=== PATIENT | female | born 1965 | race Caucasian/White ===

== ENCOUNTER 2016-11-21 08:59 | Emergency (ER) | payer MEDICAID, OTHER ==
[2016-11-21] MEDS ORDERED: LORazepam 2 MG/ML Syringe IM ONE (09:36)
--- NOTE | 2016-11-21 09:55 | EDM.PDOC ---
ED HPI GENERAL MEDICAL PROBLEM - General Chief Complaint: General Stated Complaint: SHAKEY/WEAK NAUSEA/ANXIETY Time Seen by Provider: 11/21/16 09:33 Source of Information: Reports: Patient, Old Records History Limitations: Reports: No Limitations - History of Present Illness INITIAL COMMENTS - FREE TEXT/NARRATIVE: Patient is a 51 year old female with history of anxiety and depression. States she was "near a nervous breakdown " approximately one omonth ago and was restarted on celexa. She was also given ativan to use prn. Her symptoms of anxiety and depression had actually started improving and she was starting to feel somewhat better mood vargas and had not used any ativan for several weeks. She has had a lot of increased stress at home recently and felt like "something was coming on" over the last few days with vague symptoms of some nausea and just not feeling right. When she woke up the morning she had nausea but no emesis and had three diarrhea stools. She feels weak and shaky. Denies chest pain or shortness of breath. Feels intermittent palpitations. Patient took 1 mg PO ativan just before coming to ER but it is not helping yes. She was able to eat some breakfast and drink some orange juice. Patent was on a z-pack for a respiratory infection which has pretty much resolved except for an occasion non productive cough. Onset: Gradual Onset Date: 11/19/16 Duration: Day(s): (has been coming on over last two days) Associated Symptoms: Reports: Nausea/Vomiting, Weakness, Other (feels shaky and anxious). Denies: Chest Pain, cough w sputum, Diaphoresis, Fever/Chills, Headaches, Loss of Appetite, Shortness of Breath Treatments TAPER MACHINE: Reports: Other (see below) (too ativan 1 mg just prior to arrival at ER) Other Treatments TAPER MACHINE: none - Related Data Allergies Allergy/AdvReac Type Severity Reaction Status Date / Time Penicillins Allergy Hives Verified 11/21/16 09:17 prochlorperazine edisylate Allergy Facial Verified 11/21/16 09:17 [From Compazine] Spasms prochlorperazine maleate Allergy Facial Verified 11/21/16 09:17 [From Compazine] Spasms Home Meds: Home Meds Citalopram [Celexa] 20 mg PO DAILY 11/21/16 [History] LORazepam [Ativan] 1 mg PO ASDIRECTED PRN 11/21/16 [History] Omeprazole 20 mg PO DAILY 11/21/16 [History] Past Medical History Other HEENT History: Patient has red, itchy, painful, watery eyes for past 2 days. Gastrointestinal History: Reports: PUD Other Gastrointestinal History: ulcers Other OB/BYN History: 3 c-sections Psychiatric History: Reports: Anxiety, Depression - Past Surgical History GI Surgical History: Reports: Appendectomy Other Female Surgeries/Procedures: pt denies Social & Family History - Family History Family Medical History: Noncontributory - Tobacco Use Smoking Status *Q: Current Every Day Smoker Years of Tobacco use: 31 Packs/Tins Daily: 0.5 Used Tobacco, but Quit: No Month Tobacco Last Used: CURRENT Second Hand Smoke Exposure: Yes - Alcohol Use Days Per Week of Alcohol Use: 0 - Recreational Drug Use Recreational Drug Use: No ED ROS GENERAL - Review of Systems Review Of Systems: See Below Constitutional: Reports: Weakness, Night Sweats, Other (nght sweats, sleeps well but never feels rested). Denies: Fever, Chills, Diaphoresis, Weight Loss HEENT: Reports: Eye Discharge (itchy watery eyes last few days) Respiratory: Reports: No Symptoms Cardiovascular: Reports: Lightheadedness, Palpitations (intermittent). Denies: Chest Pain, Dyspnea on Exertion, Edema, Syncope Endocrine: Reports: Fatigue GI/Abdominal: Reports: Diarrhea (times three this morning), Nausea. Denies: Abdominal Pain, Black Stool, Bloody Stool, Difficulty Swallowing, Melena, Vomiting : Reports: No Symptoms Musculoskeletal: Reports: No Symptoms Skin: Reports: No Symptoms Neurological: Reports: Tremors, Weakness Psychiatric: Reports: Anxiety, Depression Hematologic/Lymphatic: Reports: No Symptoms Immunologic: Reports: No Symptoms ED EXAM, GENERAL - Physical Exam Exam: See Below Exam Limited By: No Limitations General Appearance: Alert, WD/WN, Anxious Eye Exam: Bilateral Eye: EOMI, PERRL Ears: Normal External Exam, Normal Canal, Hearing Grossly Normal, Normal TMs Ear Exam: Bilateral Ear: Auricle Normal, Canal Normal, TM normal Nose: Normal Inspection, Normal Mucosa, No Blood Throat/Mouth: Normal Inspection, Normal Lips, Normal Teeth, Normal Gums, Normal Oropharynx, Normal Voice, No Airway Compromise Head: Atraumatic, Normocephalic Neck: Normal Inspection, Supple, Non-Tender, Full Range of Motion Respiratory/Chest: No Respiratory Distress, Wheezing (lungs mainly clear but coarse bilat ant and post with scattered expiratory wheezes). No: Respiratory Distress Cardiovascular: Normal Peripheral Pulses, Regular Rate, Rhythm, No Edema, No Gallop, No JVD, No Murmur, No Rub, Other (cardiac rhythm strip showed NSR without ectopy, rate in the 70s) Peripheral Pulses: 3+: Radial (L), Radial (R) GI/Abdominal: Normal Bowel Sounds, Soft, Non-Tender, No Organomegaly, No Distention, No Abnormal Bruit, No Mass (Female) Exam: Deferred Rectal (Female) Exam: Deferred Back Exam: Normal Inspection, Full Range of Motion, NT Extremities: Normal Inspection, Normal Range of Motion, Non-Tender, Normal Capillary Refill, No Pedal Edema Neurological: Alert, Oriented, CN II-XII Intact, Normal Cognition, Normal Gait, Normal Reflexes, No Motor/Sensory Deficits, Other (maintains eye contact, has spontaneous speech without inappropriate speech patterns, is able express self fluently,) Psychiatric: Anxious, Tearful Skin Exam: Warm, Dry, Intact, Normal Color, No Rash Lymphatic: No Adenopathy Course - Vital Signs Last Recorded V/S: Last Vital Signs Temp 36.2 C 11/21/16 09:14 Pulse 82 11/21/16 10:14 Resp 16 11/21/16 10:08 BP 126/84 11/21/16 10:14 Pulse Ox 95 11/21/16 10:08 - Orders/Labs/Meds Labs: Laboratory Tests 11/21/16 11/21/16 Range/Units 09:47 09:47 WBC 6.4 (5.0-10.0) 10^3/uL RBC 4.17 (4.00-5.50) 10^6/uL Hgb 13.5 (12.0-16.0) g/dL Hct 40.9 (37.0-47.0) % MCV 98.1 H (82.0-94.0) fL MCH 32.4 H (27.0-32.0) pg MCHC 33.0 (33.0-38.0) g/dL RDW Coeff of Real 13.7 (11.0-15.0) % Plt Count 222 (150-400) 10^3/uL Neut % (Auto) 66.9 (35-85) % Lymph % (Auto) 20.2 (10-55) % [place] % (Auto) 10.4 (0-16) % Eos % (Auto) 2.0 (0-5) % Baso % (Auto) 0.5 (0-3) % Neut # (Auto) 4.25 (1.80-7.00) 10^3/uL Lymph # (Auto) 1.28 (1.00-4.80) 10^3/uL [place] # (Auto) 0.66 (0.00-0.80) 10^3/uL Eos # (Auto) 0.13 (0.00-0.45) 10^3/uL Baso # (Auto) 0.03 10^3/uL Sodium 141 (136-145) mEq/L Potassium 4.4 D (3.5-5.0) mEq/L Chloride 106 (98-106) mEq/L Carbon Dioxide 28 (21-32) mmol/L BUN 18 (7-18) mg/dL Creatinine 0.9 (0.6-1.0) mg/dL Est Cr Clr Drug Dosing 59.80 mL/min Estimated GFR (MDRD) > 60 (>=60) mL/min Glucose 89 (75-99) mg/dL Calcium 9.1 (8.4-10.1) mg/dL Total Bilirubin 0.2 (0.0-1.0) mg/dL AST 14 L (15-37) U/L ALT 20 (12-78) U/L Alkaline Phosphatase 73 (46-116) U/L Total Protein 7.0 (6.4-8.2) g/dL Albumin 3.9 (3.4-5.0) g/dL TSH, Ultra Sensitive 2.72 (0.36-5.60) uIU/mL Meds: Medications Discontinued Medications Generic Name Dose Route Start Last Admin Trade Name Freq PRN Reason Stop Dose Admin Lorazepam 1 mg 11/21/16 09:36 11/21/16 09:44 Ativan IM 11/21/16 09:37 1 mg ONETIME ONE Administration - Re-Assessments/Exams Free Text/Narrative Re-Assessment/Exam: 11/21/16 11:04 Patient evaluated and labs done. Labs showed no significant abnormalities likely to affect her currently symptoms but did show mild persistent elevation in MCH which looks like it has been present going back several years on chart review. This may need further evaluation in the [facility] setting but will leave that to her PCP. Situation discussed at length with patient and advised likely cause of symptoms is anxiety disorder.However also advised her if symptoms persist, change or worsen she needs to follow up with her PCP for further evaluation. She was given 1 mg IM ativan and initial symptoms were pretty much resolved prior to discharge. Patient denied any thought or plans for suicide or hurting herself or anyone else. She is advised that if she does develop suicidal thoughts she needs to seek medical care at once. Other recommendations discussed at length with patients as per discharge sheet. She is to follow up with her PCP within the next two weeks and set up an appointment for counseling as soon as possible. Patient voiced understanding and was discharged in stable condition to home. Departure - Departure Time of Disposition: 11:00 Disposition: Home, Self-Care 01 Condition: Good Clinical Impression: Anxiety disorder Qualifiers: Anxiety disorder type: unspecified anxiety disorder Qualified Code(s): F41.9 - Anxiety disorder, unspecified - Discharge Information Instructions: Panic Attacks Forms: ED Department Discharge Additional Instructions: We will increase your citalopram to 40 mg daily. Follow up with Dr Montero within the next two weeks please for further treatment recommendations. If you tend to feel anxious first thing in the morning, get up 30 minutes early and take 1/2 mg of the ativan to help with your anxiety. The goal is to use as infrequently as possible once your anxiety and depression improve. Never stop taking your citalopram suddenly. You may experience serotonin withdrawal syndrome. If you ever go off of it, it needs to be gradually tapered. Make an appointment to see a counselor in the near future. If your present symptoms change or worsen in any way, please return to ER or clinic for further evaluation..
[2016-11-21 10:15] VITALS: BP 126/84
[2016-11-21 10:24] LABS: CHLORIDE,CL 106 mEq/L (98-106); SODIUM,NA 141 mEq/L (136-145)
== END 2016-11-21 11:10 | disposition home or self-care (01) ==
LOC: CC.ED 08:59
DX: F41.9 Anxiety disorder, unspecified (principal); F17.210 Nicotine dependence, cigarettes, uncomplicated; Z88.0 Allergy status to penicillin; Z88.8 Allergy status to other drugs, medicaments and biological substances; Z79.899 Other long term (current) drug therapy; Z90.89 Acquired absence of other organs
CPT/HCPCS: 36415; 80053; 84443; 85025; 96372; 99283; J2060

== ENCOUNTER 2017-04-10 01:47 | Emergency (ER) | payer SELFPAY ==
[2017-04-10] MEDS ORDERED: Ondansetron 4 MG Tab.DIS PO ONE (01:49)
[2017-04-10 01:52] VITALS: BP 113/76
[2017-04-10] MEDS ORDERED: Ketorolac 60 MG/2 ML SDV IM ONE (01:54)
--- NOTE | 2017-04-10 02:02 | EDM.PDOC ---
ED HPI GENERAL MEDICAL PROBLEM - General Chief Complaint: Abdominal Pain Stated Complaint: abd pain Time Seen by Provider: 04/10/17 01:47 Source of Information: Reports: Patient History Limitations: Reports: No Limitations - History of Present Illness INITIAL COMMENTS - FREE TEXT/NARRATIVE: States she has been having stomach cramps with diarrhea, and nausea since yesterday morning. Is able to hold down fluids. Onset: Gradual Onset Date: 04/09/17 Duration: Hour(s): Location: Reports: Abdomen Quality: Reports: Other (cramping) Severity: Moderate Improves with: Reports: None Worsens with: Reports: None Abdominal Pain Score (Numeric/FACES): 7 - Related Data Allergies Allergy/AdvReac Type Severity Reaction Status Date / Time Penicillins Allergy Hives Verified 04/10/17 01:47 prochlorperazine edisylate Allergy Facial Verified 04/10/17 01:47 [From Compazine] Spasms prochlorperazine maleate Allergy Facial Verified 04/10/17 01:47 [From Compazine] Spasms Home Meds: Home Meds Citalopram [Celexa] 20 mg PO DAILY 11/21/16 [History] LORazepam [Ativan] 1 mg PO ASDIRECTED PRN 11/21/16 [History] Omeprazole 20 mg PO DAILY 11/21/16 [History] Past Medical History Other HEENT History: Patient has red, itchy, painful, watery eyes for past 2 days. Gastrointestinal History: Reports: PUD Other Gastrointestinal History: ulcers Other OB/BYN History: 3 c-sections Psychiatric History: Reports: Anxiety, Depression - Past Surgical History GI Surgical History: Reports: Appendectomy Other Female Surgeries/Procedures: pt denies Social & Family History - Family History Family Medical History: Noncontributory - Tobacco Use Smoking Status *Q: Current Every Day Smoker Years of Tobacco use: 31 Packs/Tins Daily: 0.5 Used Tobacco, but Quit: No Month Tobacco Last Used: CURRENT Second Hand Smoke Exposure: Yes - Alcohol Use Days Per Week of Alcohol Use: 0 - Recreational Drug Use Recreational Drug Use: No ED ROS GENERAL - Review of Systems Review Of Systems: See Below Constitutional: Reports: No Symptoms HEENT: Reports: No Symptoms Respiratory: Reports: No Symptoms Cardiovascular: Reports: No Symptoms Endocrine: Reports: No Symptoms GI/Abdominal: Reports: Abdominal Pain, Diarrhea, Nausea : Reports: No Symptoms Musculoskeletal: Reports: No Symptoms Skin: Reports: No Symptoms Neurological: Reports: No Symptoms Psychiatric: Reports: No Symptoms Hematologic/Lymphatic: Reports: No Symptoms Immunologic: Reports: No Symptoms ED EXAM, GI/ABD - Physical Exam Exam: See Below Exam Limited By: No Limitations General Appearance: Alert, WD/WN Head: Atraumatic Neck: Normal Inspection Respiratory/Chest: No Respiratory Distress, Lungs Clear Cardiovascular: Normal Peripheral Pulses, Regular Rate, Rhythm GI/Abdominal Exam: Normal Bowel Sounds, Soft, No Organomegaly, No Distention, No Abnormal Bruit, No Mass, Tender Extremities: Normal Inspection, Normal Range of Motion Neurological: Alert, Oriented Psychiatric: Normal Affect, Normal Mood Skin Exam: Warm, Dry, Intact Course - Vital Signs Last Recorded V/S: Last Vital Signs Temp 97.9 F 04/10/17 01:48 Pulse 89 04/10/17 01:48 Resp 20 04/10/17 01:48 BP 113/76 04/10/17 01:48 Pulse Ox 97 04/10/17 01:48 - Orders/Labs/Meds Orders: Active Orders 24 hr Category Date Time Status UA W/MICROSCOPIC [URIN] Stat Lab 04/10/17 01:57 Ordered Meds: Medications Discontinued Medications Generic Name Dose Route Start Last Admin Trade Name Guillermo PRN Reason Stop Dose Admin Dicyclomine HCl 10 mg 04/10/17 02:03 Bentyl PO 04/10/17 02:04 ONETIME ONE Ketorolac Tromethamine 60 mg 04/10/17 01:54 04/10/17 02:02 Toradol IM 04/10/17 01:55 60 mg ONETIME ONE Administration Ondansetron HCl 4 mg 04/10/17 01:49 04/10/17 01:53 Zofran Odt PO 04/10/17 01:50 4 mg ONETIME ONE Administration Departure - Departure Time of Disposition: 02:24 Disposition: Home, Self-Care 01 Condition: Good Clinical Impression: Nausea & vomiting, Stomach ache - Discharge Information Instructions: Nausea and Vomiting, Adult, [id number] Forms: ED Department Discharge Additional Instructions: Please see nursing noted for family medical history - My Orders Last 24 Hours: My Active Orders 04/10/17 01:57 UA W/MICROSCOPIC [URIN] Stat - Assessment/Plan Last 24 Hours: My Active Orders 04/10/17 01:57 UA W/MICROSCOPIC [URIN] Stat
[2017-04-10] MEDS ORDERED: Dicyclomine 10 MG Cap PO ONE (02:03)
== END 2017-04-10 02:45 | disposition home or self-care (01) ==
LOC: CC.ED 01:47
DX: R10.9 Unspecified abdominal pain (principal); R11.2 Nausea with vomiting, unspecified; F17.210 Nicotine dependence, cigarettes, uncomplicated; Z88.0 Allergy status to penicillin; Z88.8 Allergy status to other drugs, medicaments and biological substances; Z79.899 Other long term (current) drug therapy
CPT/HCPCS: 81001; 96372; 99284; A9270-GY; J1885

== ENCOUNTER 2019-03-23 19:06 | Emergency (ER) | payer SELFPAY ==
[~2019-03-23 19:06] MED LIST: cefTRIAXone 2 GM Vial ONE
[2019-03-23] MEDS ORDERED: Cephalexin 500 MG Cap PO ONE (19:07)
[2019-03-23] MEDS ORDERED: Ketorolac 10 MG Tab PO ONE (19:07)
--- NOTE | 2019-03-23 19:09 | EDM.PDOC ---
ED HPI GENERAL MEDICAL PROBLEM - General Chief Complaint: Skin Complaint Stated Complaint: INFECTION TO NOSE Time Seen by Provider: 03/23/19 19:09 Source of Information: Reports: Patient History Limitations: Reports: No Limitations - History of Present Illness INITIAL COMMENTS - FREE TEXT/NARRATIVE: Patient to the emergency department complaining of redness and swelling to her distal end of the nose. The nose appears to have honeycomb crusted drainage noted. No fever chills no change in vision no ear, nose, or throat symptoms other than the red irritation of swelling of the nose. There is no sore throat there is no neck, back pain or stiffness there is no chest abdominal pain there is no nausea vomiting no other symptoms no fever chills Onset: Gradual Duration: Day(s): (2 Days) Location: Reports: Face (Nose) Quality: Reports: Ache Severity: Mild Improves with: Reports: None Worsens with: Reports: None Associated Symptoms: Denies: Cough, Fever/Chills, Nausea/Vomiting, Rash, Shortness of Breath, Weakness Treatments TIMBER WATCHMAN: Reports: Other (see below) (None) - Related Data Allergies Allergy/AdvReac Type Severity Reaction Status Date / Time Penicillins Allergy Hives Verified 03/23/19 19:07 prochlorperazine edisylate Allergy Facial Verified 03/23/19 19:07 [From Compazine] Spasms prochlorperazine maleate Allergy Facial Verified 03/23/19 19:07 [From Compazine] Spasms Home Meds: Home Meds Citalopram [Celexa] 20 mg PO DAILY 11/21/16 [History] LORazepam [Ativan] 1 mg PO ASDIRECTED PRN 11/21/16 [History] Cephalexin [Keflex] 500 mg PO TID 9 Days #27 capsule 03/23/19 [Rx] buPROPion HCL [Bupropion HCl Sr] 150 mg PO BID 03/23/19 [History] Past Medical History Other HEENT History: Patient has red, itchy, painful, watery eyes for past 2 days. 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 Denies: Fever, Chills HEENT: Reports: No Symptoms Respiratory: Reports: No Symptoms Cardiovascular: Reports: No Symptoms Endocrine: Reports: No Symptoms GI/Abdominal: Reports: No Symptoms : Reports: No Symptoms Musculoskeletal: Reports: No Symptoms. Denies: Neck Pain, Back Pain Skin: Reports: Erythema (As above) Neurological: Reports: No Symptoms. Denies: Dizziness, Headache Psychiatric: Reports: No Symptoms ED EXAM, SKIN/RASH Exam: See Below Exam Limited By: No Limitations General Appearance: Alert, WD/WN, No Apparent Distress Ears: Normal External Exam Nose: Other (Redness and swelling to the distal nose with a honeycomb appearance ). No: Normal Inspection Throat/Mouth: Normal Inspection, Normal Lips, Normal Voice, No Airway Compromise Head: Atraumatic, Normocephalic Neck: Normal Inspection, Supple, Non-Tender, Full Range of Motion Respiratory/Chest: No Respiratory Distress, Lungs Clear, Normal Breath Sounds, Chest Non-Tender Cardiovascular: Normal Peripheral Pulses, Regular Rate, Rhythm, No Murmur Peripheral Pulses: 2+: Radial (L) GI/Abdominal: Soft, Non-Tender Back Exam: Normal Inspection, Full Range of Motion Extremities: Normal Inspection, Normal Range of Motion, Non-Tender, Normal Capillary Refill Neurological: Alert, Oriented, Normal Cognition, Normal Gait Psychiatric: Normal Affect, Normal Mood Skin: Warm, Dry, Normal Color, No Rash, Other (Nose as above) Location, Skin: Other (Nose) Associated features: Tenderness, Swelling, Crusting (Honeycomb type appearance) Course - Vital Signs Text/Narrative:: The patient was evaluated in the emergency department the patient appears to have impetigo to the nose. The patient will be given Rocephin 2 g IV and then started on Keflex 500 mg 3 times daily for 10 days she will be advised to keep the nose clean and dry. She is to have this rechecked in 4 to 5 days and return to the clinic or the emergency department sooner if worsening problems. She is to alternate Tylenol Motrin as needed for any pain. Last Recorded V/S: Last Vital Signs Temp 37.3 C 03/23/19 19:09 Pulse 88 03/23/19 19:09 Resp 16 02/01/20 19:09 BP 141/83 H 03/23/19 19:09 Pulse Ox 96 03/23/19 19:09 - Orders/Labs/Meds Meds: Medications Discontinued Medications Generic Name Dose Route Start Last Admin Trade Name Guillermo PRN Reason Stop Dose Admin Hydrocodone Bitart/Acetaminophen 1 tab 03/23/19 19:11 [place] 325-5 Mg PO 03/23/19 19:12 ONETIME ONE Ceftriaxone Sodium 2 gm 03/23/19 19:11 Rocephin IVPUSH 03/23/19 19:12 ONETIME ONE Departure - Departure Time of Disposition: 19:18 Disposition: Home, Self-Care 01 Clinical Impression: Impetigo - Discharge Information *PRESCRIPTION DRUG MONITORING PROGRAM REVIEWED*: Not Applicable *COPY OF PRESCRIPTION DRUG MONITORING REPORT IN PATIENT COCO: Not Applicable Prescriptions: Cephalexin [Keflex] 500 mg PO TID 9 Days #27 capsule Instructions: Impetigo, Adult Referrals: Harry Montero MD [Primary Care Provider] - Forms: ED Department Discharge Additional Instructions: Keep the nose clean and dry Keflex 500 mg 3 times a day for 10 days Follow-up with the family doctor in 4 to 5 days Return to the clinic or the emergency department sooner if worse or problems Sepsis Event Note - Focused Exam Vital Signs: Vital Signs Temp Pulse Resp BP Pulse Ox 03/23/19 19:09 37.3 C 88 16 141/83 H 96 Date Exam was Performed: 03/23/19 Time Exam was Performed: 19:12 - Problem List & Annotations (1) Impetigo SNOMED Code(s): 59294737 Code(s): L01.00 - IMPETIGO, UNSPECIFIED Status: Acute Priority: Medium - Problem List Review Problem List Initiated/Reviewed/Updated: Yes - Assessment/Plan Plan: As above
[2019-03-23 19:11] VITALS: BP 141/83; PULSE 88
[2019-03-23] MEDS ORDERED: cefTRIAXone 2 GM Vial IVPUSH ONE (19:11)
[2019-03-23] MEDS ORDERED: Acetaminophen/HYDROcodone 325-5 MG Tab PO ONE (19:11)
[2019-03-23] MEDS ORDERED: Take Home: Cephalexin 500 MG Cap, 4 Cap Pack PO ONE (19:19)
[2019-03-23] MEDS ORDERED: Take Home: Ketorolac 10 MG Tab, 4 Tab Pack PO ONE (20:23)
== END 2019-03-23 20:32 | disposition home or self-care (01) ==
LOC: CC.ED 19:06
DX: L01.00 Impetigo, unspecified (principal); F32.9 Major depressive disorder, single episode, unspecified; Z88.0 Allergy status to penicillin; Z88.8 Allergy status to other drugs, medicaments and biological substances; F41.9 Anxiety disorder, unspecified; Z79.899 Other long term (current) drug therapy
CPT/HCPCS: 96374; 99283; A9270; J0696

== ENCOUNTER → 2020-05-08 | Day surgery (SDC) | payer SELFPAY ==
[~2020-05-08] MED LIST changes: +Ketamine 200 MG/20 ML MDV ONE; +Lactated Ringers 1,000 ML IV SCH; +Lidocaine 2% 5 ML SDV ONE; +Propofol 200 MG/20 ML SDV ONE; -cefTRIAXone 2 GM Vial ONE; +fentaNYL 100 MCG/2 ML SDV ONE
[2020-05-08 11:47] VITALS: BP 134/82; PULSE 62
--- NOTE | 2020-05-08 12:35 | OR ---
DATE OF OPERATION: 05/08/2020 PREOPERATIVE DIAGNOSIS: EPIGASTRIC PAIN. POSTOPERATIVE DIAGNOSIS: PEPTIC ULCER DISEASE. SURGEON: Harry Montero MD PROCEDURE: DIAGNOSTIC ESOPHAGOGASTRODUODENOSCOPY WITH BIOPSIES X3, CRISS. ANESTHESIA: MAC. COMPLICATIONS: None. SPECIMEN: 1. Duodenal bulb biopsy x1. 2. Antral biopsy x1. 3. Fundal biopsy x1. 4. Antral CRISS. FINDINGS: 1. Full-length diagnostic EGD. 2. Diffuse peptic ulcer disease with multiple erosions from fundus to duodenal bulb. RECOMMENDATIONS: Ongoing medical treatment. INDICATIONS: The patient has been having ongoing epigastric pain. We elected to proceed with EGD. DESCRIPTION OF PROCEDURE: The patient was prepped and draped, placed in the left lateral decubitus position with head of the bed elevated. A lubricated Olympus gastroscope was inserted over a bit, advanced to cricopharyngeus area, and easily intubated into the esophagus. The esophageal lining was benign in its entire course. The Z-line was crisp and sharp at 37 cm. No spontaneous reflux was seen. No distal esophagitis, stricturing, ulceration, or [place]'s changes. The scope was advanced into the stomach, through the pylorus, and into the second portion of the duodenum. This was benign. The duodenal bulb had mild inflammation with 1 large healing ulcer, multiple small erosions. Biopsy was taken. The scope was brought back into the stomach and retroflexed. The upper fundus and cardia were benign, but the rest of the fundus and antrum upon straightening showed diffuse gastritis with multiple small erosions throughout. No arleen ulcerations or bleeding sites. Frame And Scrap Crusher biopsies were taken of the fundus and antrum along with a CLOtest. Air was suctioned and the scope removed without complication. RITA/GABO /[id number]
== END ==
LOC: CC.SDS 10:24
PROVIDERS: ATTEND Family Medicine
DX: K29.50 Unspecified chronic gastritis without bleeding (principal); B96.81 Helicobacter pylori [H. pylori] as the cause of diseases classified elsewhere; K29.80 Duodenitis without bleeding; K25.9 Gastric ulcer, unspecified as acute or chronic, without hemorrhage or perforation; K26.9 Duodenal ulcer, unspecified as acute or chronic, without hemorrhage or perforation; K31.89 Other diseases of stomach and duodenum; E78.5 Hyperlipidemia, unspecified; F17.210 Nicotine dependence, cigarettes, uncomplicated; Z88.0 Allergy status to penicillin; Z88.8 Allergy status to other drugs, medicaments and biological substances; Z98.890 Other specified postprocedural states
CPT/HCPCS: 00731; 87081; J2704; J3010; J7120

== ENCOUNTER 2020-08-10 21:11 | Emergency (ER) | payer SELFPAY ==
--- NOTE | 2020-08-10 21:34 | EDM.PDOC ---
ED HPI GENERAL MEDICAL PROBLEM - General Chief Complaint: General Stated Complaint: anxiety Time Seen by Provider: 08/10/20 21:24 Source of Information: Reports: Patient History Limitations: Reports: No Limitations - History of Present Illness INITIAL COMMENTS - FREE TEXT/NARRATIVE: Colette is a 55 yo female who presents to the ED with c/o anxiety and racing heart. She reports onset around 1930. Does report that for the last few months she has been smoking CBD oil for her pain and anxiety. Reports her son brought some new stuff home today and she smoked the oil around 1800 this evening. She reports it was purchased from the same store they have always purchased in the past. No one else in the household smoked the same oil. She reports that now her chest just feels like it is burning and her heart is racing. She reports she feels very anxious, like she is having a severe panic attack. Does have Xanax at home. Reports she too 0.25 mg about 20 minutes ago and then took another 0.25 mg about 10 minutes ago. Does not feel like this has helped her. She does report that prior to this, she was feeling fine. Denies any abdominal pain, N/V/D, hallucinations, fever, chills, decreased appetite. Does report the last 2 days have been very stressful for her and does feel like tonight it is catching up with her. Reports she has struggled with some anxiety for years, but has not had a panic attack to this severity for a few years. Onset: Today, Sudden Onset Date: 08/10/20 Onset Time: 19:00 Duration: Constant Location: Reports: Chest, Generalized Quality: Reports: Burning Associated Symptoms: Reports: Chest Pain. 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(s) (Xanax, 0.5 mg total ) - Related Data Allergies Allergy/AdvReac Type Severity Reaction Status Date / Time Penicillins Allergy Hives Verified 08/10/20 21:14 prochlorperazine edisylate Allergy Facial Verified 08/10/20 21:14 [From Compazine] Spasms prochlorperazine maleate Allergy Facial Verified 08/10/20 21:14 [From Compazine] Spasms Home Meds: Home Meds Citalopram Hydrobromide [Celexa] 40 mg PO DAILY 05/07/20 [History] Pantoprazole Sodium [Protonix] 40 mg PO DAILY 05/07/20 [History] ALPRAZolam [Alprazolam] 0.25 mg PO Q8H PRN 08/10/20 [History] Past Medical History Other HEENT History: Patient has red, itchy, painful, watery eyes for past 2 days. 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 Constitutional: Reports: No Symptoms HEENT: Reports: No Symptoms Respiratory: Reports: Shortness of Breath Cardiovascular: Reports: Chest Pain, Palpitations. Denies: Edema, Lighthea dedness Endocrine: Reports: No Symptoms GI/Abdominal: Reports: No Symptoms : Reports: No Symptoms Musculoskeletal: Reports: No Symptoms Skin: Reports: No Symptoms Neurological: Reports: No Symptoms Psychiatric: Reports: Anxiety Hematologic/Lymphatic: Reports: No Symptoms Immunologic: Reports: No Symptoms ED EXAM, GENERAL - Physical Exam Exam: See Below Exam Limited By: No Limitations General Appearance: Alert, WD/WN, No Apparent Distress, Anxious Eye Exam: Bilateral Eye: EOMI, Normal Fundi, Normal Inspection, PERRL Nose: Normal Inspection, Normal Mucosa, No Blood Throat/Mouth: Normal Inspection, Normal Lips, Normal Teeth, Normal Gums, Normal Oropharynx, Normal Voice, No Airway Compromise Head: Atraumatic, Normocephalic Neck: Normal Inspection, Supple, Non-Tender, Full Range of Motion Respiratory/Chest: No Respiratory Distress, Lungs Clear, Normal Breath Sounds, No Accessory Muscle Use, Chest Non-Tender Cardiovascular: Normal Peripheral Pulses, No Edema, No Murmur, Tachycardia GI/Abdominal: Normal Bowel Sounds, Soft, Non-Tender, No Organomegaly, No Distention, No Abnormal Bruit, No Mass Extremities: Normal Inspection, Normal Range of Motion, Non-Tender, Normal Capillary Refill, No Pedal Edema Neurological: Alert, Oriented, CN II-XII Intact, Normal Cognition, Normal Gait, Normal Reflexes, No Motor/Sensory Deficits Psychiatric: Anxious Skin Exam: Warm, Dry, Intact, Normal Color, No Rash Course - Vital Signs Last Recorded V/S: Last Vital Signs Temp 98 F 08/10/20 21:44 Pulse 115 H 08/10/20 21:44 Resp 18 08/10/20 21:44 BP 173/92 H 08/10/20 21:44 Pulse Ox 97 08/10/20 21:44 - Orders/Labs/Meds Labs: Laboratory Tests 08/10/20 08/10/20 08/10/20 Range/Units 21:40 21:40 21:40 WBC 12.1 H (4.0-11.0) 10^3/uL RBC 3.99 L (4.00-5.50) x10^6/uL Hgb 12.9 (12.0-16.0) g/dL Hct 38.8 (37.0-47.0) % MCV 97.2 H (83.0-97.0) fL MCH 32.3 H (27.0-32.0) pg MCHC 33.2 (32.0-36.0) g/dL RDW Coeff of Real 13.8 (11.0-15.0) % Plt Count 244 (150-400) 10^3/uL Immature Gran % (Auto) 0.3 (0.0-4.9) % Neut % (Auto) 61.9 (41-71) % Lymph % (Auto) 29.2 (24-44) % [place] % (Auto) 5.9 (0-10) % Eos % (Auto) 2.0 (0-6) % Baso % (Auto) 0.7 (0-1) % Neut # (Auto) 7.48 (1.80-8.00) x10^3/uL Lymph # (Auto) 3.53 (0.60-5.00) 10^3/uL [place] # (Auto) 0.71 (0.00-1.50) 10^3/uL Eos # (Auto) 0.24 (0.00-1.50) 10^3/uL Baso # (Auto) 0.08 (0.00-0.50) 10^3/uL Immature Gran # (Auto) 0.04 (0.00-0.49) 10^3/uL Sodium 142 (136-145) mEq/L Potassium 3.8 (3.5-5.0) mEq/L Chloride 102 (98-106) mEq/L Carbon Dioxide 28 (21-32) mmol/L BUN 10 (7-18) mg/dL Creatinine 1.1 H (0.6-1.0) mg/dL Est Cr Clr Drug Dosing 46.78 mL/min Estimated GFR (MDRD) 52 L (>=60) mL/min Glucose 160 H D (75-99) mg/dL Calcium 9.2 (8.4-10.1) mg/dL Total Bilirubin 0.2 (0.0-1.0) mg/dL AST 19 (15-37) U/L ALT 33 (12-78) U/L Alkaline Phosphatase 90 (46-116) U/L Troponin I < 0.017 (0.00-0.06) ng/mL Total Protein 7.3 (6.4-8.2) g/dL Albumin 4.1 (3.4-5.0) g/dL Urine Opiates Screen Negative (NEGATIVE) Ur Oxycodone Screen Negative (NEGATIVE) Urine Methadone Screen Negative (NEGATIVE) Ur Barbiturates Screen Negative (NEGATIVE) U Tricyclic Antidepress Negative (NEGATIVE) Ur Phencyclidine Scrn Negative (NEGATIVE) Ur Amphetamine Screen Negative (NEGATIVE) U Methamphetamines Scrn Negative (NEGATIVE) Urine MDMA Screen Negative (NEGATIVE) U Benzodiazepines Scrn Negative (NEGATIVE) Urine Cocaine Screen Negative (NEGATIVE) U Marijuana (THC) Screen Positive H (NEGATIVE) Meds: Medications Discontinued Medications Generic Name Dose Route Start Last Admin Trade Name Freq PRN Reason Stop Dose Admin Lorazepam 0.5 mg 08/10/20 21:24 08/10/20 21:40 Lorazepam 2 Mg/Ml Syringe IVPUSH 08/10/20 21:25 0.5 mg ONETIME ONE Administration - Re-Assessments/Exams Free Text/Narrative Re-Assessment/Exam: 08/10/20 22:03 Labs all stable. Urine drug screen does show positive for marijuana, which patient was very shocked to hear as she has not smoked marijuana in years. Discussed that the THC content in the CBD oil must be high enough to cause this so strongly recommend she refrain from that. Will keep patient extended ED to continue to monitor heart rate. Discussed with patient that it can take some time for marijuana to get out of her system but I do feel that is what's causing her anxiety to be worse this evening. 08/10/20 23:00 Patient reports improvement in anxiety. Pulse in the mid 80s. Will discharge. Departure - Departure Time of Disposition: 23:08 Disposition: Home, Self-Care 01 Condition: Good Clinical Impression: Anxiety, Panic attack - Discharge Information *PRESCRIPTION DRUG MONITORING PROGRAM REVIEWED*: Not Applicable *COPY OF PRESCRIPTION DRUG MONITORING REPORT IN PATIENT COCO: Not Applicable Instructions: Panic Attack, [id number] Referrals: Harry Montero MD [Primary Care Provider] - Forms: ED Department Discharge Additional Instructions: - Recommend refrain from vaping of CBD oil - Xanax as previously prescribed for panic symptoms/anxiety - May continue to feel anxious until THC/marijuana completely out of system. This can take up to 24 hours - Rest and push fluids - Follow up with PCP for recheck if symptoms persist - Return to ED for emergent needs - Problem List & Annotations (1) Marijuana abuse SNOMED Code(s): 80844613 Code(s): F12.10 - CANNABIS ABUSE, UNCOMPLICATED Status: Acute (2) Anxiety SNOMED Code(s): 89987952 Code(s): F41.9 - ANXIETY DISORDER, UNSPECIFIED Status: Acute (3) Panic attack SNOMED Code(s): 212449022 Code(s): F41.0 - PANIC DISORDER [EPISODIC PAROXYSMAL ANXIETY] Status: Acute - Problem List Review Problem List Initiated/Reviewed/Updated: Yes - Assessment/Plan Plan: As above.
[2020-08-10] MEDS: LORazepam 2 MG/ML Syringe IVPUSH ONE (21:40)
[2020-08-10 21:57] VITALS: BP 173/92; PULSE 115
[2020-08-10 21:57] LABS: CHLORIDE,CL 102 mEq/L (98-106); SODIUM,NA 142 mEq/L (136-145)
== END 2020-08-10 23:25 | disposition home or self-care (01) ==
LOC: CC.ED 21:11
DX: F41.0 Panic disorder [episodic paroxysmal anxiety] (principal); Z88.0 Allergy status to penicillin; Z88.8 Allergy status to other drugs, medicaments and biological substances; Z79.899 Other long term (current) drug therapy
CPT/HCPCS: 36415; 80053; 80305-QW; 84484; 85025; 93005; 96374; 99283-25; J2060

== ENCOUNTER 2020-09-06 06:43 | Emergency (ER) | payer SELFPAY ==
[2020-09-06 06:47] VITALS: PULSE 89
[2020-09-06] MEDS ORDERED: Cefuroxime 250 MG Tab ONE (07:12)
--- NOTE | 2020-09-06 07:30 | EDM.PDOC ---
ED HPI GENERAL MEDICAL PROBLEM - General Chief Complaint: ENT Problem Stated Complaint: sore throat, congested Time Seen by Provider: 09/06/20 07:18 Source of Information: Reports: Patient History Limitations: Reports: No Limitations - History of Present Illness INITIAL COMMENTS - FREE TEXT/NARRATIVE: Colette is a 55 year old female who presents with a 2 day history of increased sinus pressure, ear pain and a sore throat. Has chills. Admits to a cough, nonproductive and being wheezy at times. Has body aches. Unknown exposure to strep and covid. No nausea or vomiting, no abdominal discomfort. Denies any urinary complaints. Onset: Gradual Duration: Day(s):, Getting Worse Location: Reports: Head, Generalized Quality: Reports: Ache Severity: Mild Improves with: Reports: None Associated Symptoms: Reports: Cough, Fever/Chills, Headaches, Malaise. 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 Throat Pain Score (Numeric/FACES): 8 - Related Data Allergies Allergy/AdvReac Type Severity Reaction Status Date / Time Penicillins Allergy Hives Verified 09/06/20 06:47 prochlorperazine edisylate Allergy Facial Verified 09/06/20 06:47 [From Compazine] Spasms prochlorperazine maleate Allergy Facial Verified 09/06/20 06:47 [From Compazine] Spasms Home Meds: Home Meds Citalopram Hydrobromide [Celexa] 40 mg PO DAILY 05/07/20 [History] Pantoprazole Sodium [Protonix] 40 mg PO DAILY 05/07/20 [History] ALPRAZolam [Alprazolam] 0.25 mg PO Q8H PRN 08/10/20 [History] Cefuroxime [Ceftin] 250 mg PO BID #18 tab 09/06/20 [Rx] Past Medical History Other HEENT History: Patient has red, itchy, painful, watery eyes for past 2 days. 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 Psychiatric History: Reports: Anxiety, Depression - Past Surgical History GI Surgical History: Reports: Appendectomy Female Surgical History: Reports: Section Other Female Surgeries/Procedures: pt denies Social & Family History - Family History Family Medical History: No Pertinent Family History - Tobacco Use Tobacco Use Status *Q: Current Every Day Tobacco User Years of Tobacco use: 20 Packs/Tins Daily: 1 - Caffeine Use Caffeine Use: Reports: Coffee - Recreational Drug Use Recreational Drug Use: No ED ROS ENT - Review of Systems Review Of Systems: See Below Constitutional: Reports: Chills, Malaise, Fatigue. Denies: Fever, Weakness, Decreased Appetite HEENT: Reports: Ear Pain, Rhinitis, Sinus Problem, Throat Pain. Denies: Vertigo Respiratory: Reports: Cough. Denies: Shortness of Breath, Sputum Cardiovascular: Denies: Chest Pain, Edema, Lightheadedness Endocrine: Denies: Fatigue GI/Abdominal: Denies: Diarrhea, Nausea, Vomiting : Reports: No Symptoms Musculoskeletal: Reports: No Symptoms Skin: Reports: No Symptoms Neurological: Reports: Headache ED EXAM, ENT - Physical Exam Exam: See Below Exam Limited By: No Limitations General Appearance: Alert, WD/WN, No Apparent Distress Ears: Normal External Exam, Normal TMs Nose: Normal Inspection, Injected Turbinates, Other (purulent rhinorrhea noted. Admits to maxillary sinus pressure with palpation) Mouth/Throat: Pharyngeal Erythema, Throat Pain Head: Normocephalic Neck: Normal Inspection, Supple, Non-Tender Respiratory/Chest: No Respiratory Distress, Lungs Clear, Normal Breath Sounds Cardiovascular: Regular Rate, Rhythm GI/Abdominal: Normal Bowel Sounds, Soft, Non-Tender Extremities: Normal Inspection, No Pedal Edema Neurological: Alert, Oriented Skin: Warm, Dry Course - Vital Signs Last Recorded V/S: Last Vital Signs Temp 97.1 F 09/06/20 06:44 Pulse 89 09/06/20 06:44 Resp 18 09/06/20 06:44 BP 149/96 H 09/06/20 07:31 Pulse Ox 96 09/06/20 06:44 - Orders/Labs/Meds Orders: Active Orders 24 hr Category Date Time Status Cefuroxime [Take Home: Cefuroxime 250 MG, 2 Tab Pack] Med 09/06/20 07:31 Once 1 packet PO ONETIME ONE Labs: Laboratory Tests 09/06/20 Range/Units 07:05 SARS CoV-2 RNA Rapid DARRIUS Negative (NEGATIVE) - Re-Assessments/Exams Free Text/Narrative Re-Assessment/Exam: 09/06/20 0720 Covid and strep screen negative Departure - Departure Time of Disposition: 07:29 Disposition: Home, Self-Care 01 Condition: Good Clinical Impression: Sinusitis, acute - Discharge Information *PRESCRIPTION DRUG MONITORING PROGRAM REVIEWED*: No *COPY OF PRESCRIPTION DRUG MONITORING REPORT IN PATIENT COCO: No Instructions: Sinusitis, Adult, [id number] Referrals: PCP,Unknown [Primary Care Provider] - Forms: ED Department Discharge Additional Instructions: 1. Push fluids 2. Decongestant as directed 3. Alternate tylenol with ibuprofen every 3-4 hours as needed for fever or discomfort 4. Ceftin 250 mg twice a day for 10 days 5. Follow up with primary care provider if not seeing improvement or have ongoing concerns. Sepsis Event Note (ED) - Evaluation Sepsis Screening Result: No Definite Risk - Focused Exam Vital Signs: Vital Signs Temp Pulse Resp BP Pulse Ox 09/06/20 07:31 149/96 H 09/06/20 06:44 97.1 F 89 18 151/98 H 96 - My Orders Last 24 Hours: My Active Orders 09/06/20 07:31 Cefuroxime [Take Home: Cefuroxime 250 MG, 2 Tab Pack] 1 packet PO ONETIME ONE - Assessment/Plan Last 24 Hours: My Active Orders 09/06/20 07:31 Cefuroxime [Take Home: Cefuroxime 250 MG, 2 Tab Pack] 1 packet PO ONETIME ONE
[2020-09-06 07:31] VITALS: BP 149/96
[2020-09-06] MEDS ORDERED: Take Home: Cefuroxime 250 MG Tab, 2 Tab Pack PO ONE (07:31)
== END 2020-09-06 07:40 | disposition home or self-care (01) ==
LOC: CC.ED 06:43
DX: J01.90 Acute sinusitis, unspecified (principal); Z20.822 Contact with and (suspected) exposure to COVID-19; Z88.0 Allergy status to penicillin; Z88.5 Allergy status to narcotic agent; Z79.899 Other long term (current) drug therapy; Z72.0 Tobacco use
CPT/HCPCS: 87430; 99283; A9270-GY; U0002

== ENCOUNTER 2021-01-22 07:28 | Emergency (ER) | payer SELFPAY ==
[2021-01-22 07:46] VITALS: PULSE 98
[2021-01-22 07:47] VITALS: BP 146/100
--- NOTE | 2021-01-22 07:52 | EDM.PDOC ---
ED HPI GENERAL MEDICAL PROBLEM - General Chief Complaint: General Stated Complaint: ANXIETY Time Seen by Provider: 01/22/21 07:46 Source of Information: Reports: Patient History Limitations: Reports: No Limitations - History of Present Illness INITIAL COMMENTS - FREE TEXT/NARRATIVE: States that since she has had COVID and her house is all quarantined her anxiety is getting worse and this AM she woke more anxious than normal. She only took 1/2 of her xanax that she had rather than her normal 2 tabs. She isn't sure why. She doesn't feel that it is helping. She has not followed up with Brunilda Long as she was advised. She denies any suicidal thoughts. She states that she is really nervous. Has had this for long standing time and feels that it is getting worse. Onset: Gradual - Related Data Allergies Allergy/AdvReac Type Severity Reaction Status Date / Time Penicillins Allergy Hives Verified 01/26/21 19:27 prochlorperazine edisylate Allergy Facial Verified 01/26/21 19:27 [From Compazine] Spasms prochlorperazine maleate Allergy Facial Verified 01/26/21 19:27 [From Compazine] Spasms Home Meds: Home Meds Pantoprazole Sodium [Protonix] 40 mg PO DAILY 05/07/20 [History] ALPRAZolam [Alprazolam] 0.25 mg PO Q8H PRN 08/10/20 [History] busPIRone [Buspar] 10 mg PO BID 01/22/21 [History] Citalopram Hydrobromide [Celexa] 10 mg PO DAILY 01/26/21 [History] Past Medical History Other HEENT History: Patient has red, itchy, painful, watery eyes for past 2 days. 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 Psychiatric History: Reports: Anxiety, Depression - Past Surgical History GI Surgical History: Reports: Appendectomy Female Surgical History: Reports: Section Other Female Surgeries/Procedures: pt denies Social & Family History - Family History Family Medical History: No Pertinent Family History - Caffeine Use Caffeine Use: Reports: Coffee ED ROS GENERAL - Review of Systems Review Of Systems: See Below Constitutional: Reports: No Symptoms Respiratory: Reports: No Symptoms Cardiovascular: Reports: No Symptoms GI/Abdominal: Reports: No Symptoms Skin: Reports: No Symptoms Psychiatric: Reports: Anxiety, Depression. Denies: Hallucinations, Homicidal Ideation, Suicidal Ideation ED EXAM, GENERAL - Physical Exam Exam: See Below Exam Limited By: No Limitations General Appearance: Anxious, Moderate Distress Eye Exam: Bilateral Eye: PERRL Ears: Normal External Exam, Normal Canal, Normal TMs Throat/Mouth: Normal Inspection, Normal Oropharynx Head: Atraumatic, Normocephalic Neck: Normal Inspection, Supple, Non-Tender Respiratory/Chest: No Respiratory Distress, Lungs Clear, Normal Breath Sounds Cardiovascular: Regular Rate, Rhythm, No Edema GI/Abdominal: Normal Bowel Sounds, Soft, Non-Tender Extremities: Normal Inspection, Normal Range of Motion Neurological: Alert, Oriented Psychiatric: Anxious Skin Exam: Warm, Dry, Intact Course - Vital Signs Last Recorded V/S: Last Vital Signs Temp 98.3 F 01/22/21 07:30 Pulse 98 01/22/21 07:30 Resp 20 01/22/21 07:30 BP 146/100 H 01/22/21 07:46 Pulse Ox 97 01/22/21 07:30 - Orders/Labs/Meds Meds: Medications Discontinued Medications Generic Name Dose Route Start Last Admin Trade Name Freq PRN Reason Stop Dose Admin Lorazepam 1 mg 01/22/21 08:16 01/22/21 08:21 Lorazepam 0.5 Mg Tab PO 01/22/21 08:17 1 mg ONETIME ONE Administration - Re-Assessments/Exams Free Text/Narrative Re-Assessment/Exam: 01/22/21 0800 Discussed patient with Brunilda Laughlin, She recommended starting ativan and stopping the xanax. She would like her follow up in the clinic next week for med adjustments. She would be off her COVID quarantine at that time. If anxiety does not improve then she could also call and talk to Brunilda's nurse prior to her appt. If any suicidal thoughts then would need to return to the ER. Departure - Departure Time of Disposition: 08:18 Disposition: Home, Self-Care 01 Condition: Good Clinical Impression: Anxiety - Discharge Information *PRESCRIPTION DRUG MONITORING PROGRAM REVIEWED*: Not Applicable *COPY OF PRESCRIPTION DRUG MONITORING REPORT IN PATIENT COCO: Not Applicable Instructions: Managing Anxiety, Adult Referrals: Jhoana Alvarado PA-C [Primary Care Provider] - Forms: ED Department Discharge Additional Instructions: Make appt with Brunilda Laughlin next week for follow up and medication adjustment. Buspirone is twice a day. This is specifically for anxiety. Stay on the Trintellix stop the xanax start on ativan 0.5 mg twice a day NEEDED Start this later today as you were given 1 mg in the ER this AM. Recheck in the clinic if not improving. - Problem List & Annotations (1) Anxiety SNOMED Code(s): 47715376 Code(s): F41.9 - ANXIETY DISORDER, UNSPECIFIED Status: Acute Priority: High - Problem List Review Problem List Initiated/Reviewed/Updated: Yes
[2021-01-22] MEDS ORDERED: LORazepam 0.5 MG Tab PO ONE (08:16)
== END 2021-01-22 08:28 | disposition home or self-care (01) ==
LOC: CC.ED 07:28
DX: F41.9 Anxiety disorder, unspecified (principal); Z88.0 Allergy status to penicillin; Z88.8 Allergy status to other drugs, medicaments and biological substances
CPT/HCPCS: 99283; A9270-GY

== ENCOUNTER 2021-01-26 19:13 | Emergency (ER) | payer SELFPAY ==
--- NOTE | 2021-01-26 19:45 | EDM.PDOC ---
ED HPI GENERAL MEDICAL PROBLEM - General Chief Complaint: General Stated Complaint: CP Time Seen by Provider: 01/26/21 19:30 Source of Information: Reports: Patient History Limitations: Reports: No Limitations - History of Present Illness INITIAL COMMENTS - FREE TEXT/NARRATIVE: Colette is a 55 year old female that presents to the ED with onset of intermittent left sided chest pain throughout the day. Recently had COVID-19 and came off of quarantine at home. States that she has also been having anxiety. She stated that she did not receive any treatments for COVID. States the pain in the left chest started this morning and are "sharp stabbing pains" to the side of her chest. States that she did take ibuprofen today with very little relief. Stated she took her alprazolam for anxiety at about 630pm. Has had increased stress and anxiety while diagnosed with COVID and has been taking care of children at home. Has had SOB but that has improved some, denies fever, chills, diaphoresis, nausea or radiation of pain. Has had diarrhea but denies abdominal pain. She states the pain does not linger or ache. Onset: Today Location: Reports: Chest Quality: Reports: Sharp Severity: Moderate Improves with: Reports: None Worsens with: Reports: None Associated Symptoms: Reports: Chest Pain. Denies: Fever/Chills, Nausea/Vomiting, Syncope Treatments [employer]: Reports: NSAIDS, Other Medication(s) (anxiety medication) l chest Pain Score (Numeric/FACES): 7 - Related Data Allergies Allergy/AdvReac Type Severity Reaction Status Date / Time Penicillins Allergy Hives Verified 01/26/21 19:27 prochlorperazine edisylate Allergy Facial Verified 01/26/21 19:27 [From Compazine] Spasms prochlorperazine maleate Allergy Facial Verified 01/26/21 19:27 [From Compazine] Spasms Home Meds: Home Meds Pantoprazole Sodium [Protonix] 40 mg PO DAILY 05/07/20 [History] ALPRAZolam [Alprazolam] 0.25 mg PO Q8H PRN 08/10/20 [History] busPIRone [Buspar] 10 mg PO BID 01/22/21 [History] Citalopram Hydrobromide [Celexa] 10 mg PO DAILY 01/26/21 [History] Past Medical History Other HEENT History: Patient has red, itchy, painful, watery eyes for past 2 days. Gastrointestinal History: Reports: PUD Other Gastrointestinal History: ulcers Other NO EXPERIENCE History: 3 c-sections Psychiatric History: Reports: Anxiety, Depression - Past Surgical History GI Surgical History: Reports: Appendectomy Female Surgical History: Reports: Section Other Female Surgeries/Procedures: pt denies Social & Family History - Family History Family Medical History: No Pertinent Family History - Tobacco Use Tobacco Use Status *Q: Current Every Day Tobacco User Years of Tobacco use: 20 Packs/Tins Daily: 0.5 - Caffeine Use Caffeine Use: Reports: None - Recreational Drug Use Recreational Drug Use: No ED ROS GENERAL - Review of Systems Review Of Systems: See Below Constitutional: Reports: Fatigue. Denies: Fever, Chills, Weight Loss, Weight Gain HEENT: Reports: No Symptoms Respiratory: Reports: Shortness of Breath Cardiovascular: Reports: Chest Pain, Dyspnea on Exertion Endocrine: Reports: Fatigue GI/Abdominal: Reports: Diarrhea. Denies: Abdominal Pain, Black Stool, Bloody Stool : Reports: No Symptoms Musculoskeletal: Reports: No Symptoms Skin: Denies: Cyanosis, Mottled, Pallor, Diaphoresis Neurological: Denies: Confusion, Dizziness Psychiatric: Reports: Anxiety Hematologic/Lymphatic: Reports: No Symptoms Immunologic: Reports: No Symptoms ED EXAM, GENERAL - Physical Exam Exam: See Below Exam Limited By: No Limitations General Appearance: Alert, WD/WN, Anxious, Mild Distress Throat/Mouth: Normal Inspection, Normal Lips Head: Atraumatic, Normocephalic Neck: Supple, Non-Tender, Full Range of Motion Respiratory/Chest: No Respiratory Distress, Lungs Clear, Wheezing (wheezing noted to the left upper lobe, clear throughout other lung pack) Cardiovascular: Normal Peripheral Pulses, Regular Rate, Rhythm, No Edema, No Gallop, No JVD, No Murmur, No Rub GI/Abdominal: Normal Bowel Sounds, Soft, Non-Tender, No Distention (Female) Exam: Deferred Rectal (Female) Exam: Deferred Back Exam: Normal Inspection, Full Range of Motion. No: CVA Tenderness (L), CVA Tenderness (R) Extremities: Normal Inspection, Normal Range of Motion, Non-Tender, No Pedal Duy ma Neurological: Alert, Oriented, CN II-XII Intact, Normal Cognition. No: Confused, Disoriented Psychiatric: Anxious Skin Exam: Warm, Dry, Intact #1 Interpretation EKG Date: 01/26/21 Time: 19:19 Rhythm: NSR [place]: Normal P-Wave: Present QRS: Normal ST-T: Normal QT: Normal Comparison: NA - No Prior EKG Course - Vital Signs Last Recorded V/S: Last Vital Signs Temp 97.8 F 01/26/21 19:23 Pulse 89 01/26/21 19:23 Resp 18 01/26/21 19:23 BP 182/91 H 01/26/21 19:23 Pulse Ox 98 01/26/21 19:23 - Orders/Labs/Meds Orders: Active Orders 24 hr Category Date Time Status Chest 2V [CR] Stat Exams 01/26/21 19:44 Taken Labs: Laboratory Tests 01/26/21 01/26/21 01/26/21 Range/Units 19:36 19:36 19:36 WBC 12.3 H (4.0-11.0) 10^3/uL RBC 4.20 (4.00-5.50) x10^6/uL Hgb 13.4 (12.0-16.0) g/dL Hct 40.2 (37.0-47.0) % MCV 95.7 (83.0-97.0) fL MCH 31.9 (27.0-32.0) pg MCHC 33.3 (32.0-36.0) g/dL RDW Coeff of Real 13.2 (11.0-15.0) % Plt Count 337 (150-400) 10^3/uL Immature Gran % (Auto) 0.6 (0.0-4.9) % Neut % (Auto) 58.5 (41-71) % Lymph % (Auto) 30.3 (24-44) % Cross % (Auto) 8.7 (0-10) % Eos % (Auto) 1.2 (0-6) % Baso % (Auto) 0.7 (0-1) % Neut # (Auto) 7.19 (1.80-8.00) x10^3/uL Lymph # (Auto) 3.72 (0.60-5.00) 10^3/uL Cross # (Auto) 1.07 (0.00-1.50) 10^3/uL Eos # (Auto) 0.15 (0.00-1.50) 10^3/uL Baso # (Auto) 0.09 (0.00-0.50) 10^3/uL Immature Gran # (Auto) 0.07 (0.00-0.49) 10^3/uL D-Dimer, Quantitative 0.36 (0.00-0.50) Sodium 144 (136-145) mEq/L Potassium 3.9 (3.5-5.0) mEq/L Chloride 104 (98-106) mEq/L Carbon Dioxide 29 (21-32) mmol/L BUN 15 (7-18) mg/dL Creatinine 1.1 H (0.6-1.0) mg/dL Est Cr Clr Drug Dosing 46.78 mL/min Estimated GFR (MDRD) 52 L (>=60) mL/min Glucose 103 H D (75-99) mg/dL Calcium 9.4 (8.4-10.1) mg/dL Magnesium 2.3 (1.8-2.4) mg/dL Total Bilirubin 0.3 (0.0-1.0) mg/dL AST 13 L (15-37) U/L ALT 38 (12-78) U/L Alkaline Phosphatase 82 (46-116) U/L Troponin I High Sens 6.0 (<=51) pg/mL Total Protein 7.2 (6.4-8.2) g/dL Albumin 4.3 (3.4-5.0) g/dL Meds: Medications Discontinued Medications Generic Name Dose Route Start Last Admin Trade Name Damonq PRN Reason Stop Dose Admin Lorazepam 1 mg 01/26/21 20:14 01/26/21 20:24 Lorazepam 0.5 Mg Tab PO 01/26/21 20:15 1 mg ONETIME ONE Administration - Re-Assessments/Exams Free Text/Narrative Re-Assessment/Exam: 01/26/21 20:23 This is a 55-year-old female patient who presents to the ED with onset of left- sided chest pain located laterally. The pain is extremely intermittent and was initially described as sharp jolts. Patient recently is out of quarantine for COVID-19. Labs were ordered to include a CBC, CMP, troponin, and D-dimer. I reviewed the labs and only showed a's very slightly elevated white blood cell count of 12.3. Troponin was negative as well as the D-dimer. A 2 view chest x- ray was also obtained I personally reviewed this and not showing any signs of acute infiltrates or injury. While in the ER her blood pressure has been elevated with systolic blood pressures in the 180s. She does have some anxiety related to stress while having Covid and taking care of her 4 children at home. Her as needed anxiety medication that she had taken prior to arrival has not been effective. Administered 1 mg lorazepam p.o. We will plan to discharge home as there is no acute or emergent conditions Departure - Departure Time of Disposition: 20:37 Disposition: Home, Self-Care 01 Condition: Good Clinical Impression: COVID, Anxiety Chest pain Qualifiers: Chest pain type: unspecified Qualified Code(s): R07.9 - Chest pain, unspecified - Discharge Information *PRESCRIPTION DRUG MONITORING PROGRAM REVIEWED*: Not Applicable *COPY OF PRESCRIPTION DRUG MONITORING REPORT IN PATIENT COCO: Not Applicable Instructions: Nonspecific Chest Pain, Adult, Chest Wall Pain, [id number], COVID-19 Frequently Asked Questions Forms: ED Department Discharge Additional Instructions: 1. May take as needed anxiety medication as previously prescribed. 2. May utilize [id number] Tylenol and ibuprofen as needed for pain. 3. Monitor your blood pressure daily if able and take these findings to your primary care provider. 4. Symptoms of Covid can persist past your quarantine and you can expect to be fatigued. 5. Follow-up with your primary care provider within the next week to reexamine medications and hypertension. 6. Call or return with any questions or worsening symptoms. Sepsis Event Note (ED) - Evaluation Sepsis Screening Result: No Definite Risk - Focused Exam Vital Signs: Vital Signs Temp Pulse Resp BP Pulse Ox 01/26/21 19:23 97.8 F 89 18 182/91 H 98
[2021-01-26] MEDS ORDERED: LORazepam 0.5 MG Tab PO ONE (20:14)
[2021-01-26 20:56] VITALS: BP 159/90; PULSE 87
== END 2021-01-26 20:55 | disposition home or self-care (01) ==
LOC: CC.ED 19:13
DX: U07.1 COVID-19 (principal); F41.9 Anxiety disorder, unspecified; Z72.0 Tobacco use; Z88.0 Allergy status to penicillin; Z88.8 Allergy status to other drugs, medicaments and biological substances
CPT/HCPCS: 36415; 71046; 80053; 83735; 84484; 85025; 85379; 99285-25; A9270-GY

== ENCOUNTER 2021-10-30 14:45 | Emergency (ER) | payer SELFPAY ==
[2021-10-30 14:58] VITALS: BP 129/98; PULSE 107
[2021-10-30 15:32] LABS: CHLORIDE,CL 102 mEq/L (98-106); SODIUM,NA 140 mEq/L (136-145)
[2021-10-30 15:35] LABS: ESTIMATED GFR 76 mL/min (>=60)
[2021-10-30 16:01] LABS: AMPHETAMINES,URINE POSITIVE (NEGATIVE); BARBITURATES,URINE NEGATIVE (NEGATIVE); BENZODIAZEPINE,URINE NEGATIVE (NEGATIVE); MDMA (ECSTASY), URINE POSITIVE (NEGATIVE); METHADONE,URINE NEGATIVE (NEGATIVE); METHAMPHETAMINES,URINE POSITIVE (NEGATIVE); OPIATES,URINE NEGATIVE (NEGATIVE); OXYCODONE,URINE NEGATIVE (NEGATIVE); PHENCYCLIDINE,URINE NEGATIVE (NEGATIVE); TCA,URINE NEGATIVE (NEGATIVE)
[2021-10-30] MEDS ORDERED: Iopamidol 755 Mg/ML 100 ML Bottle IVPUSH ONE (16:17)
[2021-10-30] MEDS ORDERED: Iopamidol 755 Mg/ML 100 ML Bottle ONE (16:17)
[2021-10-30] MEDS ORDERED: Alum Hydrox/Mag Hydrox/Simeth 30 ML, Lidocaine 2% 15 ML PO ONE ×2 (17:03)
[2021-10-30] MEDS ORDERED: Sodium Chloride 0.9% 1,000 ML IV ONE (19:44)
[2021-10-30] MEDS ORDERED: Lidocaine 2% Viscous Solution 15 ML UD ONE (19:52)
[2021-10-30] MEDS ORDERED: Ondansetron 4 MG/2 ML SDV IVPUSH PRN (20:09)
== END 2021-10-30 20:15 ==
LOC: CC.ED 14:45
DX: F19.10 Other psychoactive substance abuse, uncomplicated (principal); Z88.0 Allergy status to penicillin; Z88.8 Allergy status to other drugs, medicaments and biological substances; Z79.899 Other long term (current) drug therapy; Z90.49 Acquired absence of other specified parts of digestive tract
CPT/HCPCS: 36415; 74177; 80053; 80305-QW; 80307; 81001; 83690; 83735; 85025; 87086; 87088; 87186; 96374; 99284; 99285-25; A9270-GY; J2405; J7030; Q9967

== ENCOUNTER 2021-11-05 08:56 | Emergency (ER) | payer SELFPAY ==
[2021-11-05 09:04] VITALS: BP 146/102; PULSE 80
[2021-11-05] MEDS ORDERED: Sodium Chloride 0.9% 10 ML Syringe FLUSH PRN (10:23)
[2021-11-05] MEDS ORDERED: Sodium Chloride 0.9% 1,000 ML IV ONE (10:24)
== END 2021-11-05 14:44 ==
LOC: CC.ED 08:56
DX: K56.699 Other intestinal obstruction unspecified as to partial versus complete obstruction (principal); F17.210 Nicotine dependence, cigarettes, uncomplicated; Z88.0 Allergy status to penicillin; Z88.8 Allergy status to other drugs, medicaments and biological substances; Z79.899 Other long term (current) drug therapy; Z90.49 Acquired absence of other specified parts of digestive tract
CPT/HCPCS: 36415; 74019; 80053; 85025; 96360; 96361; 99284; 99284-25; J7030

== ENCOUNTER 2022-04-16 14:06 | Emergency (ER) | payer SELFPAY ==
[2022-04-16 14:16] VITALS: BP 138/94; PULSE 104
[2022-04-16] MEDS ORDERED: Lactated Ringers 1,000 ML IV ONE (14:29)
[2022-04-16] MEDS ORDERED: Ondansetron 4 MG/2 ML SDV IVPUSH ONE (14:29)
[2022-04-16] MEDS ORDERED: Ketorolac 30 MG/ML SDV IVPUSH ONE ×2 (14:29→15:31)
== END 2022-04-16 17:11 | disposition home or self-care (01) ==
LOC: CC.ED 14:06
DX: K52.9 Noninfective gastroenteritis and colitis, unspecified (principal); Z72.0 Tobacco use; Z20.822 Contact with and (suspected) exposure to COVID-19; Z88.0 Allergy status to penicillin; Z88.8 Allergy status to other drugs, medicaments and biological substances; Z90.49 Acquired absence of other specified parts of digestive tract
CPT/HCPCS: 36415; 74176; 80053; 81001; 83605; 83690; 83735; 84484; 85025; 96361; 96374; 96375; 96376; 99284; 99284-25; J1885; J2405; J7120; U0002

== ENCOUNTER 2022-05-02 14:49 | Emergency (ER) | payer SELFPAY ==
[2022-05-02 15:01] VITALS: BP 118/93; PULSE 94
[2022-05-02] MEDS ORDERED: Ondansetron 4 MG Tab.DIS PO ONE (15:16)
[2022-05-02] MEDS ORDERED: Ketorolac 30 MG/ML SDV IM ONE (15:16)
[2022-05-02 15:47] LABS: CORONAVIRUS COVID-19 NAA POSITIVE (NEGATIVE)
== END 2022-05-02 15:56 | disposition home or self-care (01) ==
LOC: CC.ED 14:49
DX: U07.1 COVID-19 (principal); J02.0 Streptococcal pharyngitis; Z90.49 Acquired absence of other specified parts of digestive tract; Z72.0 Tobacco use; Z88.0 Allergy status to penicillin; Z88.8 Allergy status to other drugs, medicaments and biological substances
CPT/HCPCS: 0240U; 87430; 96372; 99283; A9270-GY; J1885

== ENCOUNTER 2022-12-05 22:28 | Emergency (ER) | payer SELFPAY ==
[2022-12-05 22:34] VITALS: BP 132/77; PULSE 88
[2022-12-05] MEDS ORDERED: Take Home: Acetaminophen/HYDROcodone 325-5 MG, 2 Tab Pack PO ONE (23:10)
== END 2022-12-05 23:45 | disposition home or self-care (01) ==
LOC: CC.ED 22:28
DX: S92.355A Nondisplaced fracture of fifth metatarsal bone, left foot, initial encounter for closed fracture (principal); Z88.0 Allergy status to penicillin; Z88.8 Allergy status to other drugs, medicaments and biological substances; X50.9XXA Other and unspecified overexertion or strenuous movements or postures, initial encounter
CPT/HCPCS: 29515; 73630-LT; 99283; A9270-GY

== ENCOUNTER 2024-03-09 18:10 | Emergency (ER) | payer SELFPAY ==
[2024-03-09 18:41] VITALS: BP 148/87; PULSE 83
[2024-03-09] MEDS: Ondansetron 4 MG Tab.DIS PO ONE (18:52)
[2024-03-09] MEDS: Take Home: Ondansetron 4 MG Tab.DIS, 2 Tab Pack PO ONE (19:18)
== END 2024-03-09 19:20 | disposition home or self-care (01) ==
LOC: CC.ED 18:10
DX: J06.9 Acute upper respiratory infection, unspecified (principal)
CPT/HCPCS: 87428; 99283; A9270

== ENCOUNTER 2024-03-20 05:13 | Emergency (ER) | payer SELFPAY ==
[2024-03-20] MEDS: LORazepam 2 MG/ML SDV IM ONE (05:57)
[2024-03-20] MEDS ORDERED: LORazepam 2 MG/ML SDV IM PRN (06:01)
[2024-03-20 06:49] VITALS: BP 124/80; PULSE 77
== END 2024-03-20 07:05 | disposition home or self-care (01) ==
LOC: CC.ED 05:13
DX: F41.9 Anxiety disorder, unspecified (principal); F17.210 Nicotine dependence, cigarettes, uncomplicated; Z90.49 Acquired absence of other specified parts of digestive tract; Z88.0 Allergy status to penicillin; Z88.8 Allergy status to other drugs, medicaments and biological substances; Z79.899 Other long term (current) drug therapy
CPT/HCPCS: 96372; 99283; J2060

== ENCOUNTER 2024-06-25 17:45 | Emergency (ER) | payer SELFPAY ==
[2024-06-25 17:57] LABS: BASOPHILS ABSOLUTE AUTO 0.09 10^3/uL (0.00-0.50); EOSINOPHILS PERCENT AUTO 2.3 % (0-6); HEMATOCRIT 41.3 % (37.0-47.0); HEMOGLOBIN 13.4 g/dL (12.0-16.0); IMMATURE GRAN ABSOLUTE AUTO 0.04 10^3/uL (0.00-0.49); IMMATURE GRAN PERCENT AUTO 0.5 % (0.0-4.9); LYMPHOCYTES ABSOLUTE AUTO 2.95 10^3/uL (0.60-5.00); LYMPHOCYTES PERCENT AUTO 33.9 % (24-44); MEAN CORPUSCULAR HEMOGLOBIN 32.4 pg (27.0-32.0); MEAN CORPUSCULAR HGB CONC 32.4 g/dL (32.0-36.0); MONOCYTES ABSOLUTE AUTO 0.62 10^3/uL (0.00-1.50); MONOCYTES PERCENT AUTO 7.1 % (0-10); NEUTROPHILS ABSOLUTE AUTO 4.79 x10^3/uL (1.80-8.00); NEUTROPHILS PERCENT AUTO 55.2 % (41-71); PLATELET COUNT,PLT 253 10^3/uL (150-400); RED BLOOD CELL COUNT 4.13 x10^6/uL (4.00-5.50); WHITE BLOOD CELL COUNT,WBC 8.7 10^3/uL (4.0-11.0)
[2024-06-25 18:07] LABS: INR 0.89 (0.92-1.18); PROTHROMBIN TIME 9.4 SEC (9.3-11.3)
[2024-06-25 18:10] LABS: ALBUMIN 4.1 g/dL (3.4-5.0); BILIRUBIN TOTAL 0.2 mg/dL (0.0-1.0); CALCIUM 9.3 mg/dL (8.4-10.1); CREATININE 0.8 mg/dL (0.6-1.0); EST CRCL DRUG DOSING (CG) 61.36 mL/min; MAGNESIUM 2.2 mg/dL (1.8-2.4); POTASSIUM,K 3.7 mEq/L (3.5-5.0); PROTEIN TOTAL,TP 7.2 g/dL (6.4-8.2)
[2024-06-25 18:15] VITALS: BP 150/91; PULSE 75
== END 2024-06-25 18:30 | disposition home or self-care (01) ==
LOC: CC.ED 17:45
DX: R07.2 Precordial pain (principal); F17.210 Nicotine dependence, cigarettes, uncomplicated; Z88.0 Allergy status to penicillin; Z88.8 Allergy status to other drugs, medicaments and biological substances; Z79.899 Other long term (current) drug therapy
CPT/HCPCS: 36415; 71046; 80053; 83690; 83735; 84484; 85025; 85610; 93005; 93010; 99284; 99285

== ENCOUNTER 2024-10-15 16:50 | Emergency (ER) | payer SELFPAY ==
[2024-10-15] MEDS: Lidocaine 1% with EPINEPHrine 1:100,000 10 ML MDV INJECT ONE (17:16)
[2024-10-15] MEDS: Diphtheria,Pertussis(Acell),Tetanus Vaccine 0.5 ML Syringe IM ONE (17:16)
[2024-10-15] MEDS: Bacitracin Oint 1 GM U/D Packet TOP ONE (17:18)
[2024-10-15 17:40] VITALS: BP 124/92; PULSE 88
== END 2024-10-15 17:42 | disposition home or self-care (01) ==
LOC: CC.ED 16:50
DX: S81.812A Laceration without foreign body, left lower leg, initial encounter (principal); Z23 Encounter for immunization; Z88.0 Allergy status to penicillin; Z88.8 Allergy status to other drugs, medicaments and biological substances; Z79.899 Other long term (current) drug therapy; W25.XXXA Contact with sharp glass, initial encounter; Y93.89 Activity, other specified
CPT/HCPCS: 12002; 90471; 90715; 99282-25; J2004

== ENCOUNTER 2025-01-13 23:45 | Inpatient (IN) | payer SELFPAY ==
[2025-01-14 00:12] LABS: BASOPHILS ABSOLUTE AUTO 0.09 10^3/uL (0.00-0.50); BASOPHILS PERCENT AUTO 0.8 % (0-1); EOSINOPHILS ABSOLUTE AUTO 0.27 10^3/uL (0.00-1.50); EOSINOPHILS PERCENT AUTO 2.4 % (0-6); IMMATURE GRAN ABSOLUTE AUTO 0.02 10^3/uL (0.00-0.49); IMMATURE GRAN PERCENT AUTO 0.2 % (0.0-4.9); LYMPHOCYTES ABSOLUTE AUTO 2.59 10^3/uL (0.60-5.00); LYMPHOCYTES PERCENT AUTO 23.0 % (24-44); MONOCYTES ABSOLUTE AUTO 0.81 10^3/uL (0.00-1.50); MONOCYTES PERCENT AUTO 7.2 % (0-10); NEUTROPHILS ABSOLUTE AUTO 7.47 x10^3/uL (1.80-8.00); NEUTROPHILS PERCENT AUTO 66.4 % (41-71); PLATELET COUNT,PLT 276 10^3/uL (150-400); RED BLOOD CELL COUNT 4.51 x10^6/uL (4.00-5.50); WHITE BLOOD CELL COUNT,WBC 11.3 10^3/uL (4.0-11.0)
[2025-01-14] MEDS: Ondansetron 4 MG/2 ML SDV IVPUSH ONE (00:15)
[2025-01-14 00:16] LABS: ALANINE AMINOTRANSFERASE,ALT 22 U/L (12-78); ASPARTATE AMNIOTRANSFERASE,AST 18 U/L (15-37); BILIRUBIN TOTAL 0.4 mg/dL (0.0-1.0); BLOOD UREA NITROGEN,BUN 14 mg/dL (7-18); CARBON DIOXIDE,CO2 30 mmol/L (21-32); CHLORIDE,CL 101 mEq/L (98-106); CREATININE 0.9 mg/dL (0.6-1.0); GLUCOSE RANDOM 163 mg/dL (75-99); POTASSIUM,K 3.4 mEq/L (3.5-5.0); PROTEIN TOTAL,TP 7.2 g/dL (6.4-8.2); SODIUM,NA 143 mEq/L (136-145)
[2025-01-14 00:19] LABS: ESTIMATED GFR 75 mL/min (>=60)
[2025-01-14] MEDS: fentaNYL 50 MCG/ML SDV IVPUSH ONE (00:51)
[2025-01-14] MEDS: Iopamidol 755 Mg/ML 100 ML Bottle IVPUSH ONE (01:01)
[2025-01-14 07:44] LABS: ALANINE AMINOTRANSFERASE,ALT 18.0 U/L (12-78); ASPARTATE AMNIOTRANSFERASE,AST 16.0 U/L (15-37); BILIRUBIN TOTAL 0.4 mg/dL (0.0-1.0); BLOOD UREA NITROGEN,BUN 12.0 mg/dL (7-18); CARBON DIOXIDE,CO2 26.0 mmol/L (21-32); CHLORIDE,CL 104.0 mEq/L (98-106); CREATININE 0.7 mg/dL (0.6-1.0); EST CRCL DRUG DOSING (CG) 70.13 mL/min; GLUCOSE RANDOM 157.0 mg/dL (75-99); POTASSIUM,K 4.0 mEq/L (3.5-5.0); PROTEIN TOTAL,TP 6.8 g/dL (6.4-8.2); SODIUM,NA 142.0 mEq/L (136-145)
[2025-01-14 07:48] LABS: ESTIMATED GFR 101.0 mL/min (>=60)
[2025-01-14] MEDS: Ondansetron 4 MG/2 ML SDV IV PRN (08:00)
[2025-01-14 09:12] LABS: APPEARANCE,URINE CLEAR (CLEAR); GLUCOSE,URINE NEGATIVE (NEGATIVE); OCCULT BLOOD,URINE TRACE-INTACT (NEGATIVE)
[2025-01-14 09:31] LABS: BASOPHILS ABSOLUTE AUTO 0.04 10^3/uL (0.00-0.50); BASOPHILS PERCENT AUTO 0.4 % (0-1); EOSINOPHILS ABSOLUTE AUTO 0.06 10^3/uL (0.00-1.50); EOSINOPHILS PERCENT AUTO 0.6 % (0-6); IMMATURE GRAN ABSOLUTE AUTO 0.01 10^3/uL (0.00-0.49); IMMATURE GRAN PERCENT AUTO 0.1 % (0.0-4.9); LYMPHOCYTES ABSOLUTE AUTO 0.81 10^3/uL (0.60-5.00); LYMPHOCYTES PERCENT AUTO 7.9 % (24-44); MONOCYTES ABSOLUTE AUTO 0.48 10^3/uL (0.00-1.50); MONOCYTES PERCENT AUTO 4.7 % (0-10); NEUTROPHILS ABSOLUTE AUTO 8.86 x10^3/uL (1.80-8.00); NEUTROPHILS PERCENT AUTO 86.3 % (41-71); PLATELET COUNT,PLT 248 10^3/uL (150-400); RED BLOOD CELL COUNT 4.39 x10^6/uL (4.00-5.50); WHITE BLOOD CELL COUNT,WBC 10.3 10^3/uL (4.0-11.0)
[2025-01-14 09:35] LABS: EPITHELIAL CELLS,URINE NOT SEEN /HPF (NOT SEEN)
[2025-01-15 07:53] LABS: BASOPHILS ABSOLUTE AUTO 0.07 10^3/uL (0.00-0.50); BASOPHILS PERCENT AUTO 0.7 % (0-1); EOSINOPHILS ABSOLUTE AUTO 0.15 10^3/uL (0.00-1.50); EOSINOPHILS PERCENT AUTO 1.5 % (0-6); IMMATURE GRAN ABSOLUTE AUTO 0.02 10^3/uL (0.00-0.49); IMMATURE GRAN PERCENT AUTO 0.2 % (0.0-4.9); LYMPHOCYTES ABSOLUTE AUTO 2.09 10^3/uL (0.60-5.00); LYMPHOCYTES PERCENT AUTO 20.7 % (24-44); MONOCYTES ABSOLUTE AUTO 0.89 10^3/uL (0.00-1.50); MONOCYTES PERCENT AUTO 8.8 % (0-10); NEUTROPHILS ABSOLUTE AUTO 6.87 x10^3/uL (1.80-8.00); NEUTROPHILS PERCENT AUTO 68.1 % (41-71); PLATELET COUNT,PLT 221 10^3/uL (150-400); RED BLOOD CELL COUNT 3.87 x10^6/uL (4.00-5.50); WHITE BLOOD CELL COUNT,WBC 10.1 10^3/uL (4.0-11.0)
[2025-01-15 08:21] LABS: ALANINE AMINOTRANSFERASE,ALT 18.0 U/L (12-78); ASPARTATE AMNIOTRANSFERASE,AST 18.0 U/L (15-37); BILIRUBIN TOTAL 0.4 mg/dL (0.0-1.0); BLOOD UREA NITROGEN,BUN 11.0 mg/dL (7-18); CARBON DIOXIDE,CO2 24.0 mmol/L (21-32); CHLORIDE,CL 112.0 mEq/L (98-106); CREATININE 0.7 mg/dL (0.6-1.0); EST CRCL DRUG DOSING (CG) 70.13 mL/min; GLUCOSE RANDOM 96.0 mg/dL (75-99); POTASSIUM,K 4.0 mEq/L (3.5-5.0); PROTEIN TOTAL,TP 5.3 g/dL (6.4-8.2); SODIUM,NA 145.0 mEq/L (136-145)
[2025-01-15 08:36] LABS: ESTIMATED GFR 101.0 mL/min (>=60)
[2025-01-16 07:46] LABS: BASOPHILS ABSOLUTE AUTO 0.04 10^3/uL (0.00-0.50); BASOPHILS PERCENT AUTO 0.5 % (0-1); EOSINOPHILS ABSOLUTE AUTO 0.18 10^3/uL (0.00-1.50); EOSINOPHILS PERCENT AUTO 2.3 % (0-6); IMMATURE GRAN ABSOLUTE AUTO 0.04 10^3/uL (0.00-0.49); IMMATURE GRAN PERCENT AUTO 0.5 % (0.0-4.9); LYMPHOCYTES ABSOLUTE AUTO 1.69 10^3/uL (0.60-5.00); LYMPHOCYTES PERCENT AUTO 21.2 % (24-44); MONOCYTES ABSOLUTE AUTO 0.77 10^3/uL (0.00-1.50); MONOCYTES PERCENT AUTO 9.6 % (0-10); NEUTROPHILS ABSOLUTE AUTO 5.27 x10^3/uL (1.80-8.00); NEUTROPHILS PERCENT AUTO 65.9 % (41-71); PLATELET COUNT,PLT 228 10^3/uL (150-400); RED BLOOD CELL COUNT 3.96 x10^6/uL (4.00-5.50); WHITE BLOOD CELL COUNT,WBC 8.0 10^3/uL (4.0-11.0)
[2025-01-16 08:06] LABS: ALANINE AMINOTRANSFERASE,ALT 9.0 U/L (12-78); ASPARTATE AMNIOTRANSFERASE,AST 13.0 U/L (15-37); BILIRUBIN TOTAL 0.5 mg/dL (0.0-1.0); BLOOD UREA NITROGEN,BUN 4.0 mg/dL (7-18); CARBON DIOXIDE,CO2 27.0 mmol/L (21-32); CHLORIDE,CL 110.0 mEq/L (98-106); CREATININE 0.7 mg/dL (0.6-1.0); EST CRCL DRUG DOSING (CG) 70.13 mL/min; ESTIMATED GFR 101.0 mL/min (>=60); GLUCOSE RANDOM 99.0 mg/dL (75-99); POTASSIUM,K 4.2 mEq/L (3.5-5.0); PROTEIN TOTAL,TP 5.8 g/dL (6.4-8.2); SODIUM,NA 145.0 mEq/L (136-145)
[2025-01-16 08:47] VITALS: BP 138/88; PULSE 82
== END 2025-01-16 11:15 | disposition home or self-care (01) | DRG 390 ==
LOC: SUPCPDRO 23:45 → CC.ED 23:45 → CC.MS 01-14 02:17
PROVIDERS: ADMIT Physician Assistant Medical; ATTEND Physician Assistant Medical
DX: K56.609 Unspecified intestinal obstruction, unspecified as to partial versus complete obstruction (principal); F17.200 Nicotine dependence, unspecified, uncomplicated; F41.9 Anxiety disorder, unspecified; Z90.49 Acquired absence of other specified parts of digestive tract; Z98.891 History of uterine scar from previous surgery; Z88.0 Allergy status to penicillin; Z88.8 Allergy status to other drugs, medicaments and biological substances; Z79.899 Other long term (current) drug therapy
CPT/HCPCS: 36415; 74019; 74177; 80053; 81001; 83690; 85025; 86140; 96374; 96375; 99285-25; A9270-GY; J1171; J2405; J3010; J7030; Q9967